=== PATIENT | female | born 1945 | race Caucasian/White ===

== ENCOUNTER → 2017-03-07 | Outpatient (CLI) | payer SELFPAY ==
[~2017-03-07] MED LIST: ASPIRIN EC81 MG PO; LIPITOR10 MG PO; VITAMIN D1000 UNI1 PO
--- NOTE | ~2017-03-07 | OR ---
PATIENT'S NAME: TODD RODRIGUEZ [facility] AGE: 71 Y [address] ROOM: [place] [address] LOCATION: [facility] ADMIT DATE: 03/07/2017 OR/Procedure Report DISCHARGE DATE: FAMILY PHYSICIAN: Apolonia Altamirano MD ATTENDING PHYSICIAN: ONEIL DE LA CRUZ SURGEON: Amarjit Gabriel MD NOTCH GRINDER: DATE OF PROCEDURE: 03/07/2017 PROCEDURE PERFORMED: Calcium score report. INDICATION FOR STUDY: The patient with hyperlipidemia and coronary artery disease. The total Agatston score is 151. The calcium score in left anterior descending artery is 35 and right coronary artery is 116. Possible stent was noted in the mid right coronary artery. IMPRESSION: The total Agatston score is 151 with Agatston score in the right coronary artery of 116 and left anterior descending artery of 35. Possible stent was noted in the right coronary artery. AMARJIT GABRIEL MD LY/modl /[id number] d: 03/07/17 2338 t: 03/13/17 1532, OPERATIVE SUMMARY
== END | disposition disaster alternative care site (69) ==
LOC: GPOC 03-03 13:00
DX: E78.5 Hyperlipidemia, unspecified (principal); Z82.49 Family history of ischemic heart disease and other diseases of the circulatory system